=== PATIENT | male | born 1990 | race Caucasian/White ===

== ENCOUNTER 2024-01-21 09:15 | Outpatient (AMB) | payer BC, SELFPAY ==
--- NOTE | 2024-01-21 09:27 | MHC.PC.OV ---
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 He is here for a physical exam. 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 He exercises regularly. He has no health concerns today. He had a Summer cold which resolved. He gets mild seasonal allergies. ROS: Constitutional: No unexplained weight loss, fever, chills, fatigue or night sweats. Eyes: No vision changes, blurry vision, double vision, eye pain, eye redness, eye discharge. ENT: No hearing loss, sinus pain, nose bleeds or sore throat. Respiratory: No shortness of breath, cough or sputum production. Cardiovascular: No chest pain, chest pressure or chest discomfort. No palpitations or pedal edema. Gastrointestinal: No anorexia, nausea, vomiting or diarrhea. No abdominal pain or blood in stool. Genitourinary: No dysuria, hematuria, urinary frequency. No testicular swelling, pain or lumps. Neurologic: No headache, dizziness, syncope, unilateral weakness, ataxia, numbness or tingling in the extremities. Musculoskeletal: No muscle pain, back pain, joint pain or swelling. Hematologic/Lymphatics: No bleeding or bruising. No painful lymph nodes. Skin: No rash or itching. Endocrine: No cold or heat intolerance. No polyuria or polydipsia. Psychiatric: No depression or anxiety. No SI/HI. Physical exam: Constitutional: Alert, in no distress. Head: Normocephalic. Eyes: Pupils are equal, round and reactive to light. Extraocular muscles intact. Ear, Nose and Throat: Canals clear. TMs normal. Normal nasal mucosa. 2+ inferior turbinates and mildly deviated nasal septum. No nasal discharge. No oral lesions. Neck: Supple, Full range of motion. No lymphadenopathy. No palpable thyroid masses. Respiratory: Clear to auscultation. Cardiovascular: S1 S2 regular. No murmurs. Gastrointestinal: Abdomen soft, non-tender, non-distended. Normal bowel sounds. No palpable masses. Genitourinary: No costovertebral angle tenderness. Deferred testicular exam. Neurologic: No focal neurological deficits. Symmetric patellar reflexes. Moves all extremities spontaneously. Sensation intact bilaterally. Skin: No rashes or lesions. Multiple nevi on trunk (checked by dermatology per patient) Musculoskeletal: No gross deformities. Normal range of motion. Extremities: Warm and well perfused. No clubbing, cyanosis or edema. 3+ peripheral pulses bilaterally. Psychiatric: Normal mood and affect [facility] Medical History (Updated 01/21/24 @ 13:31 by HOUSTON Mae) Seasonal allergies Screening for cardiovascular condition Surgical History (Updated 01/21/24 @ 10:03 by HOUSTON Mae) [place] teeth extracted Family History (Updated 01/21/24 @ 10:04 by HOUSTON Mae) Mother Lung cancer Social History (Updated 01/21/24 @ 10:01 by Neelam Snyder CMA) Housing: House Patient Tobacco Use Status: Former Tobacco user Years Smoked: 7 e-Cigarette/Vaping Use: Never Used service: No Current occupational status: employed Current occupation: air intelligence officer Current occupational exposures/hazards: Yes (blood pathogens) Cognitive needs: No Hearing needs: No Vision needs: No Questionnaire PHQ-9 Over the last 2 weeks, how often have you been bothered by any of the following problems? 1. Little interest or pleasure in doing things: not at all 2. Feeling down, depressed, or hopeless: not at all 3. Trouble falling or staying asleep, or sleeping too much: not at all 4. Feeling tired or having little energy: not at all 5. Poor appetite or overeating: not at all 6. Feeling bad about yourself - or that you are a failure or have let yourself or your family down: not at all 7. Trouble concentrating on things, such as reading the newspaper or watching television: not at all 8. Moving or speaking so slowly that other people could have noticed. Or the opposite - being so fidgety or restless that you have been moving around a lot more than usual: not at all 9. Thoughts that you would be better off or of hurting yourself in some way: not at all Total score: 0 Depression Screening Interpretation: Negative Depression Screening Done: Yes 87645 - PHQ-9 Billing: Yes Source: Developed by Drs. Herson Garg, Ellyn Fitzpatrick, Jose Younger and colleagues, with an educational jake from [employer]. Thrive Questionnaire Date Thrive assessed: 01/21/24 I am a: Patient What is your living situation today?: I have a steady place to live Within the past 12 months, did the food you bought not last and you didn't have the money to get more?: Never true Within the past 12 months, did you worry whether your food would run out before you got money to buy more?: Never true Do you have trouble paying for medicines?: No Do you have trouble getting transportation to medical appointments?: No Do you have trouble paying your heating and electricity bill?: No Do you have trouble taking care of your child, family member or friend?: No Do you have trouble with day-to-day activities such as bathing, preparing meals, shopping, managing finances, etc.?: No Are you currently unemployed and looking for a job?: No Are you interested in more education?: No Please select the resources that you would like help with: None Currently or been in a relationship where the following occur: No concerns reported THRIVE Score: 0 AUDIT C Alcohol Use Questionnaire (AUDIT-C) 1. How often do you have a drink containing alcohol?: Monthly or less 2. How many drinks containing alcohol do you have on a typical day when you are drinking?: 3 or 4 3. How often do you have six or more drinks on one occasion?: Never Total Score: 2 FARIBA-7 AMB Questionnaire FARIBA-7 Date FARIBA - 7 assessed: 01/21/24 Feeling nervous, anxious, or on edge: 0 = Not at all Not being able to stop or control worryin = Not at all Worrying too much about different things: 0 = Not at all Trouble relaxin = Not at all Being so restless that it is hard to sit still: 0 = Not at all Becoming easily annoyed or irritable: 0 = Not at all Feeling afraid as if something awful might happen: 0 = Not at all Total FARIBA-7 score (0-4 normal; 5-9 mild; 10-14 moderate; 15-21 severe): 0 Source: Developed by Drs. Herson Garg, Ellyn Fitzpatrick, Jose Younger and colleagues, with an educational jake from [employer]. FARIBA-7 Assessment Billing FARIBA-7 Assessment Tool: FARIBA-7 Assessment 32506 Physical exam (Primary Care) Vital Signs: Last Vital Signs Temp 97.6 F 01/21/24 09:35 Pulse 56 01/21/24 09:35 Resp 16 01/21/24 09:35 BP 106/72 01/21/24 09:35 Pulse Ox 99 01/21/24 09:35 Oxygen Delivery Method Room Air 01/21/24 09:35 BMI result Body Mass Index 27.5 Tobacco/Smoking Status: Tobacco use Status Tobacco use date assessed 01/21/24 01/21/24 09:31 Patient Tobacco Use Status Former Tobacco user 01/21/24 10:01 e-Cigarette/Vaping Use Never Used 01/21/24 10:01 PHQ-9: PHQ-9 Score PHQ-9: Total score 0 01/21/24 10:01 Depression Screening Interpretation: Negative Thrive Assessment: Date of Thrive Assessment Date Thrive assessed 01/21/24 01/21/24 10:01 Currently or been in a relationship where the following occur: No concerns reported Assessment and Plan Assessment & Plan (1) Routine physical examination: Code(s): Z00.00 - Encounter for general adult medical examination without abnormal findings (2) Screening for cardiovascular condition: Code(s): Z13.6 - Encounter for screening for cardiovascular disorders (3) Seasonal allergies: Code(s): J30.2 - Other seasonal allergic rhinitis Plan Patient is seen today for a routine physical. As part of this visit we reviewed the following issues, which are considered and essential part of preventative health in this age group: - Testicular cancer screening, which includes self exam teaching - Screening for colon cancer - Blood pressure screening - Cholesterol screening - Nutritional and exercise counseling - Counseling of injury prevention including fire prevention, smoke alarms and seat belt usage - Screening for depression - Prevention of and/or testing for infectious diseases - Education about skin cancer - Recommendations about immunizations - Recommendation of an eye exam - Screening for substance abuse - Genetic cancer risk screening Follow up in 1 year for CPE. Orders: Orders Lipid Panel Today Z00.00 - Encounter for general adult medical examination without abnormal findings, Z13.6 - Encounter for screening for cardiovascular disorders Comprehensive Met. Panel Today Z00.00 - Encounter for general adult medical examination without abnormal findings, Z13.6 - Encounter for screening for cardiovascular disorders Complete Blood Count no Diff Today Z00.00 - Encounter for general adult medical examination without abnormal findings Coding Level of Care Code New Pt Prev Care 18-39yr([id number] Diagnoses Routine physical examination Z00.00 Screening for cardiovascular condition Z13.6 Seasonal allergies J30.2 Additional Codes FARIBA-7 Assessment Billing - FARIBA-7 Assessment Tool: FARIBA-7 Assessment 50702 ([id number])
[2024-01-21 09:35] VITALS: BP 106/72; PULSE 56; RESP 16; TEMP 36.4; O2SAT 99; BMI 27.5
== END 2024-01-21 10:24 | disposition home or self-care (01) ==
PROVIDERS: PCP Physician Assistant Medical; Visit Provider Physician Assistant Medical
DX: Z00.00 Encounter for general adult medical examination without abnormal findings (principal); Z13.6 Encounter for screening for cardiovascular disorders; J30.2 Other seasonal allergic rhinitis
CPT/HCPCS: 99385

== ENCOUNTER 2024-10-21 08:39 | Outpatient (REF) | payer BC, SELFPAY ==
[2024-10-21 11:30] LABS: Hematocrit 46.5 % (42.0-52.0); Hemoglobin 16.1 g/dl (14.0-18.0); Mean Corpuscular HGB Conc 34.6 g/dl (31.0-36.0); Mean Corpuscular Hemoglobin 29.9 pg (27.0-33.0); Mean Corpuscular Volume 86.3 fL (80.0-98.0); Mean Platelet Volume 10.1 fL (9.4-12.4); Platelet Count 222 X10*3/uL (160-400); Red Blood Count 5.39 X10*6/uL (4.60-5.80); White Blood Count 3.8 X10*3/uL (4.8-10.8)
== END 2024-10-21 08:40 | disposition home or self-care (01) ==
LOC: HO.WFDLDS 08:39
PROVIDERS: Visit Provider Physician Assistant Medical
DX: Z00.00 Encounter for general adult medical examination without abnormal findings (principal)
CPT/HCPCS: 36415; 80053; 80061; 85027

== ENCOUNTER 2025-01-23 08:25 | Outpatient (AMB) | payer BC, SELFPAY ==
--- NOTE | 2025-01-23 08:36 | A.OFFPC_ITS ---
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 He is here for a physical exam. 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 He exercises regularly. He plays in a an adult soccer league. He continues to endorse seasonal allergies, but he declines referrals and medications. The symptoms are tolerable. He has bilateral ingrown toenails since high school. He would like to see Podiatry. He endorses medial right knee pain for the past 2 weeks. He thinks it started after playing basketball. 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 It is not impacting ADLs or movement. He used a TENS. The pain is improving. No popping, weakness, swelling or redness. Denies tick bites. We reviewed that lab work from October showed mildly decreased white blood cell count, but there was an issue with the quality of the blood sample and not all of the labs were run. Patient is referred to [facility] for a skin exam. One of his grandparents had skin cancer, and he has a lot of moles and freckles. He had a skin exam about 2 years ago. ROS: Constitutional: No unexplained weight loss, fever, chills, fatigue or night sweats. Eyes: No vision changes, blurry vision, double vision, eye pain, eye redness, eye discharge. ENT: No hearing loss, sinus pain, nose bleeds or sore throat. Respiratory: No shortness of breath, cough or sputum production. Cardiovascular: No chest pain, chest pressure or chest discomfort. No palpitations or pedal edema. Gastrointestinal: No anorexia, nausea, vomiting or diarrhea. No abdominal pain or blood in stool. Genitourinary: No dysuria, hematuria, urinary frequency. No testicular swelling, pain or lumps. Neurologic: No headache, dizziness, syncope, unilateral weakness, ataxia, numbness or tingling in the extremities. Musculoskeletal: See HPI Hematologic/Lymphatics: No bleeding or bruising. No painful lymph nodes. Skin: No rash Endocrine: No cold or heat intolerance. No polyuria or polydipsia. Psychiatric: No depression or anxiety. No SI/HI. Physical exam: Constitutional: Alert, in no distress. Head: Normocephalic. Eyes: Pupils are equal, round and reactive to light. Extraocular muscles intact. Ear, Nose and Throat: Canals clear. TMs normal. Normal nasal mucosa. No nasal discharge. No oral lesions. Neck: Supple, Full range of motion. No lymphadenopathy. No palpable thyroid masses. Respiratory: Clear to auscultation. Cardiovascular: S1 S2 regular. No murmurs. Gastrointestinal: Abdomen soft, non-tender, non-distended. Normal bowel sounds. No palpable masses. Genitourinary: No costovertebral angle tenderness. Deferred testicular exam. Neurologic: No focal neurological deficits. Symmetric patellar reflexes. Moves all extremities spontaneously. Sensation intact bilaterally. Skin: No rashes or lesions. Multiple nevi on trunk Musculoskeletal: Patient has mild medial right knee pain with application of valgus pressure and tenderness of the medial aspect of the right knee. No swelling. No popping or clicking. Strength 5/5. Normal gait. Extremities: Warm and well perfused. No clubbing, cyanosis or edema. Intact peripheral pulses bilaterally Psychiatric: Normal mood and affect [facility] Medical History (Updated 01/23/25 @ 13:51 by HOUSTON Mae) Right knee pain Decreased white blood cell count Routine physical examination Ingrown toenail of both feet Seasonal allergies Screening for cardiovascular condition Surgical History [place] teeth extracted Family History Mother Lung cancer Social History (Updated 01/23/25 @ 08:44 by Neelam Snyder CMA) Housing: House Alcohol intake: current Patient Tobacco Use Status: Former Tobacco user Years Smoked: 7 e-Cigarette/Vaping Use: Never Used service: No Current occupational status: employed Current occupation: contracts officer Current occupational exposures/hazards: Yes (blood pathogens) Cognitive needs: No Hearing needs: No Vision needs: No Questionnaire PHQ-9 Over the last 2 weeks, how often have you been bothered by any of the following problems? 1. Little interest or pleasure in doing things: not at all 2. Feeling down, depressed, or hopeless: not at all 3. Trouble falling or staying asleep, or sleeping too much: not at all 4. Feeling tired or having little energy: not at all 5. Poor appetite or overeating: not at all 6. Feeling bad about yourself - or that you are a failure or have let yourself or your family down: not at all 7. Trouble concentrating on things, such as reading the newspaper or watching television: not at all 8. Moving or speaking so slowly that other people could have noticed. Or the opposite - being so fidgety or restless that you have been moving around a lot more than usual: not at all 9. Thoughts that you would be better off or of hurting yourself in some way: not at all Total score: 0 Depression Screening Interpretation: Negative Depression Screening Done: Yes 95297 - PHQ-9 Billing: Yes Source: Developed by Drs. Herson Garg, Ellyn Fitzpatrick, Jsoe Younger and colleagues, with an educational jake from [employer]. Thrive Questionnaire Date Thrive assessed: 01/23/25 I am a: Patient What is your living situation today?: I have a steady place to live Within the past 12 months, did the food you bought not last and you didn't have the money to get more?: Never true Within the past 12 months, did you worry whether your food would run out before you got money to buy more?: Never true Do you have trouble paying for medicines?: No Do you have trouble getting transportation to medical appointments?: No Do you have trouble paying your heating and electricity bill?: No Do you have trouble taking care of your child, family member or friend?: No Do you have trouble with day-to-day activities such as bathing, preparing meals, shopping, managing finances, etc.?: No Are you currently unemployed and looking for a job?: No Are you interested in more education?: No Please select the resources that you would like help with: None Currently or been in a relationship where the following occur: No concerns reported THRIVE Score: 0 AUDIT C Alcohol Use Questionnaire (AUDIT-C) 1. How often do you have a drink containing alcohol?: 2-4 times a month 2. How many drinks containing alcohol do you have on a typical day when you are drinking?: 3 or 4 3. How often do you have six or more drinks on one occasion?: Never Total Score: 3 FARIBA-7 AMB Questionnaire FARIBA-7 Date FARIBA - 7 assessed: 01/23/25 Feeling nervous, anxious, or on edge: 0 = Not at all Not being able to stop or control worryin = Not at all Worrying too much about different things: 0 = Not at all Trouble relaxin = Not at all Being so restless that it is hard to sit still: 0 = Not at all Becoming easily annoyed or irritable: 0 = Not at all Feeling afraid as if something awful might happen: 0 = Not at all Total FARIBA-7 score (0-4 normal; 5-9 mild; 10-14 moderate; 15-21 severe): 0 Source: Developed by Drs. Herson Garg, Ellyn Fitzpatrick, Jose Younger and colleagues, with an educational jake from [employer]. FARIBA-7 Assessment Billing FARIBA-7 Assessment Tool: FARIBA-7 Assessment 23009 Physical exam (Primary Care) Vital Signs: Last Vital Signs Temp 97.7 F 01/23/25 08:38 Pulse 51 01/23/25 08:38 Resp 16 01/23/25 08:38 BP 96/66 01/23/25 08:38 Pulse Ox 97 01/23/25 08:38 Oxygen Delivery Method Room Air 01/23/25 08:38 BMI result Body Mass Index 28.8 Tobacco/Smoking Status: Tobacco use Status Tobacco use date assessed 01/23/25 01/23/25 08:44 Patient Tobacco Use Status Former Tobacco user 01/23/25 08:44 e-Cigarette/Vaping Use Never Used 01/23/25 08:44 PHQ-9: PHQ-9 Score PHQ-9: Total score 0 01/23/25 08:54 Depression Screening Interpretation: Negative Thrive Assessment: Date of Thrive Assessment Date Thrive assessed 01/23/25 01/23/25 08:44 Currently or been in a relationship where the following occur: No concerns reported Coding Level of Care Code Est Pt Prev Care 18-39y(88033) Diagnoses Ingrown toenail of both feet L60.0 Routine physical examination Z00.00 Decreased white blood cell count D72.819 Right knee pain M25.561 Additional Codes FARIBA-7 Assessment Billing - FARIBA-7 Assessment Tool: FARIBA-7 Assessment 75478 ([id number]) PHQ-9 - 91729 - PHQ-9 Billing: Yes ([id number]) Assessment & Plan Assessment & Plan (1) Ingrown toenail of both feet: Code(s): L60.0 - Ingrowing nail Category: Medical Plan: Refer to podiatry. (2) Routine physical examination: Code(s): Z00.00 - Encounter for general adult medical examination without abnormal findings Category: Medical Plan: Patient is seen today for a routine physical. As part of this visit we reviewed the following issues, which are considered and essential part of preventative health in this age group: - Testicular cancer screening, which includes self exam teaching - Screening for colon cancer - Blood pressure screening - Cholesterol screening - Nutritional and exercise counseling - Counseling of injury prevention including fire prevention, smoke alarms and seat belt usage - Screening for depression - Education about skin cancer - Recommendations about immunizations - Recommendation of an eye exam - Screening for substance abuse (3) Decreased white blood cell count: Code(s): D72.819 - Decreased white blood cell count, unspecified Category: Medical Plan: Check CBC with diff. (4) Right knee pain: Code(s): M25.561 - Pain in right knee Category: Medical Plan: Possible MCL strain. Recommended home exercises and stretches. Allow 4-6 weeks for recovery. Call if symptoms worsen or do not resolve. Plan Schedule physical exam in 1 year. Orders: Referrals Dermatology Referral Z12.83 - Encounter for screening for malignant neoplasm of skin Podiatry Referral L60.0 - Ingrowing nail
[2025-01-23 08:38] VITALS: BP 96/66; PULSE 51; RESP 16; TEMP 36.5; O2SAT 97; BMI 28.8
--- OUTSIDE RECORDS SUMMARY | 2025-01-23 09:20 | XMS_ITS ---
Author Name [facility] Organization Unknown Care Team Organization Name Specialty Phone Email Start Date End Da te [facility] Boaz Sotelo DO Primary Care 07/23/202212/16
== END 2025-01-23 09:12 | disposition home or self-care (01) ==
LOC: HO.HMCFM 08:26
PROVIDERS: PCP Physician Assistant Medical; Visit Provider Physician Assistant Medical
DX: L60.0 Ingrowing nail (principal); Z00.00 Encounter for general adult medical examination without abnormal findings; D72.819 Decreased white blood cell count, unspecified; M25.561 Pain in right knee

== ENCOUNTER 2025-01-23 08:25 | Outpatient (REF) | payer BC, SELFPAY ==
[2025-01-23 15:17] LABS: MANUAL DIFF FLAG NO
[2025-01-23 15:24] LABS: Hematocrit 44.9 % (42.0-52.0); Hemoglobin 15.8 g/dl (14.0-18.0); Imm Gran Abs Auto 0.01 X10*3/uL (0.00-0.03); Imm Gran Pct Auto 0.2 % (0.0-0.4); Lymphocytes Absolute Auto 1.5 X10*3/uL (1.2-4.9); Mean Corpuscular HGB Conc 35.2 g/dl (31.0-36.0); Mean Corpuscular Hemoglobin 30.1 pg (27.0-33.0); Mean Corpuscular Volume 85.5 fL (80.0-98.0); NRBC Abs Auto 0.000 X10*3/uL (0.0-0.012); NRBC Pct Auto 0.0 /100WBC (0.0-0.2); Platelet Count 217 X10*3/uL (160-400); Red Blood Count 5.25 X10*6/uL (4.60-5.80); White Blood Count 4.3 X10*3/uL (4.8-10.8)
[2025-01-23 15:40] LABS: Alanine Aminotransferase 28 U/L (0-40); Albumin Level 4.6 g/dL (3.5-5.0); Alkaline Phosphatase 56 U/L (39-117); Anion Gap 11 (12-20); Aspartate Amino Transferase 25 U/L (5-37); Blood Urea Nitrogen 18 mg/dL (9-16); Calcium 9.0 mg/dL (8.4-10.2); Carbon Dioxide 29 mmol/L (22-29); Chloride 106 mmol/L (96-108); Cholesterol 189 mg/dL (<200); Estimated Glomerular Filt Rate > 60; HDL Cholesterol 41 mg/dL (>40); Potassium 4.3 mmol/L (3.3-5.1); Sodium 142 mmol/L (135-145); Total Protein 7.2 g/dL (6.5-8.0); Triglycerides 100 mg/dL (<150)
== END 2025-01-23 08:26 | disposition home or self-care (01) ==
LOC: HO.WFDLDS 08:25
PROVIDERS: PCP Physician Assistant Medical; Visit Provider Physician Assistant Medical
DX: Z13.6 Encounter for screening for cardiovascular disorders (principal); L60.0 Ingrowing nail; Z00.00 Encounter for general adult medical examination without abnormal findings; D72.819 Decreased white blood cell count, unspecified; M25.561 Pain in right knee; J30.2 Other seasonal allergic rhinitis
CPT/HCPCS: 36415; 80053; 80061; 85025; 96127